=== PATIENT | male | born 1975 ===

== ENCOUNTER 2018-08-08 19:04 | Emergency (ER) | payer BC, OTHER ==
[~2018-08-08] VITALS: Ht 170.2 cm; Wt 72.1 kg
--- OUTSIDE RECORDS SUMMARY | 2018-08-08 19:08 | XMS REPORT | Continuity of Care Document ---
Author Organization Unknown Address Unknown Allergies Active Description Code Type Severity Reaction Onset Reported/Identified Relationship to Patient Clinical Status Yes No Known Drug Allergies [id number] Drug Allergy Unknown N/A 07/01/2015 Medications There is no data. Problems Date Dx Coded Attending Type Code Diagnosis Diagnosed By 07/02/2015 Ot F10.129 ALCOHOL ABUSE WITH INTOXICATION, UNSPECI 07/02/2015 Ot Y90.8 BLOOD ALCOHOL LEVEL OF 240 MG/100 ML OR Procedures There is no data. Results There is no data. Encounters ACCT No. Visit Date/Time Discharge Status Pt. Type Provider Facility Loc./Unit Complaint [id number] 08/08/2018 19:06:00 ACT Emergency GARTH LICONA MD Via [facility] ER SOB [id number] 07/01/2015 21:33:00 Document Registration [id number] 03/26/2018 17:50:00 03/26/2018 23:59:59 [facility] Outpatient [facility]
[2018-08-08] MEDS ORDERED: NS IV 1000 ML 1,000 ML IV ONE ×2 (19:20→20:40)
[2018-08-08] MEDS ORDERED: NITROGLYCERIN 0.4 MG SL TABS BTL 25'S SL ONE (19:25)
[2018-08-08 19:26] LABS: BASOPHILS % (AUTO) 1 % (0-10); EOSINOPHILS # (AUTO) 0.1 10^3/uL (0.0-0.3); EOSINOPHILS % (AUTO) 2 % (0-10); HEMATOCRIT 44 % (40-54); HEMOGLOBIN 15.4 G/DL (13.3-17.7); LYMPHOCYTES # (AUTO) 3.2 X 10^3 (1.0-4.0); LYMPHOCYTES % (AUTO) 47 % (12-44); MEAN CORPUSCULAR HEMOGLOBIN 32 PG (25-34); MEAN CORPUSCULAR HGB CONC 35 G/DL (32-36); MEAN CORPUSCULAR VOLUME 91 FL (80-99); MEAN PLATELET VOLUME 10.7 FL (7.4-10.4); MONOCYTES # (AUTO) 0.5 X 10^3 (0.0-1.0); MONOCYTES % (AUTO) 8 % (0-12); NEUTROPHILS # (AUTO) 2.9 X 10^3 (1.8-7.8); NEUTROPHILS % (AUTO) 42 % (42-75); PLATELET COUNT 233 10^3/uL (130-400); RED CELL DISTRIBUTION WIDTH 12.9 % (10.0-14.5); WHITE BLOOD COUNT 6.8 10^3/uL (4.3-11.0)
[2018-08-08] MEDS ORDERED: NITROGLYCERIN 0.4 MG SL TABS BTL 25'S SL PRN (19:30)
[2018-08-08] MEDS ORDERED: ASPIRIN 81 MG CHEW (CHILDREN'S ASA) PO ONE (19:30)
[2018-08-08 19:36] LABS: INR 0.9 (0.8-1.4); PROTHROMBIN TIME PATIENT 12.9 SEC (12.2-14.7)
--- NOTE | 2018-08-08 19:43 | ED Chest Pain ---
General Chief Complaint: Chest Pain Stated Complaint: SOB Nursing Triage Note: PT AMB TO RM 6 WITH COMPLAINT OF SOA, HEART RACING, AND CHEST PAIN. PT STATES THIS HAS BEEN ON AND OFF FOR THE LAST WEEK. STATES TODAY IT STARTED WHILE DRIVING TO [place]. Nursing Sepsis Screen: No Definite Risk Source: patient Exam Limitations: no limitations History of Present Illness Date Seen by Provider: August 08, 2018 Time Seen by Provider: 19:21 Initial Comments Here with report of intermittent chest pain over the last week. The last 4 hours he's had left-sided chest pressure that 6 out of 10 and palpitations and heart racing. Also complains of shortness of air. Onset today while driving to [place]. No report of nausea, vomiting, sweating or weakness. Timing/Duration: 4-6 hours, 1 week, changing over time, intermittent Severity/Quality: moderate, pressure Location: central Radiation: no radiation Activities at Onset: none Prior CP/Workup: no prior cardiac workup Modifying Factors: improves with rest ASA po RESEARCH TEST ENGINE EVALUATOR: No NTG SL RESEARCH TEST ENGINE EVALUATOR: No Associated Symptoms: No abdominal pain, No back pain, No diaphoresis, No fever/ chills, No nausea/vomiting; shortness of breath, weakness Allergies and Home Medications Allergies Coded Allergies: No Known Drug Allergies (Unverified , 07/01/15) Home Medications No Active Prescriptions or Reported Meds Patient Home Medication List Home Medication List Reviewed: Yes Review of Systems Review of Systems Constitutional: see HPI; No chills, No fever EENTM: No Symptoms Reported Respiratory: See HPI, Shortness of Air; Denies Wheezing Cardiovascular: Chest Pain; Denies Edema; Palpitations Gastrointestinal: No Symptoms Reported Genitourinary: No Symptoms Reported Musculoskeletal: no symptoms reported Skin: no symptoms reported Psychiatric/Neurological: No Symptoms Reported All Other Systems Reviewed Negative Unless Noted: Yes Past Puhnpjl-Thxcmt-Mebizt Hx Past Med/Social Hx: Reviewed Nursing Past Med/Soc Hx Patient Social History Alcohol Use: Denies Use Recreational Drug Use: No Smoking Status: Never a Smoker Recent Foreign Travel: No Contact w/Someone Who Travel: No Recent Infectious Disease Expo: No Recent Hopitalizations: No Immunizations Up To Date Tetanus Booster (TDap): Unknown Seasonal Allergies Seasonal Allergies: No Past Medical History Surgeries: No Respiratory: No Cardiac: Yes High Cholesterol Neurological: No Reproductive Disorders: No Genitourinary: No Gastrointestinal: No Musculoskeletal: No Endocrine: No HEENT: No Cancer: No Integumentary: No Family Medical History Reviewed Nursing Family Hx Physical Exam Vital Signs Vital Signs - First Documented 08/08/18 19:09 Pulse 92 Resp 20 B/P (MAP) 133/87 (102) Pulse Ox 100 O2 Delivery Room Air Capillary Refill : Less Than 3 Seconds Height, Weight, BMI Height: 5'7.00" Weight: 159lbs. oz. 72.171258dk; BMI Method:Stated General Appearance: No Apparent Distress, WD/WN HEENT: PERRL/EOMI, Pharynx Normal Neck: Non Tender, Supple Respiratory: Lungs Clear, Normal Breath Sounds Cardiovascular: Regular Rate, Rhythm, No Murmur Gastrointestinal: Non Tender, Soft Extremity: Normal Range of Motion, Non Tender Neurologic/Psychiatric: Alert, Oriented x3 Skin: Normal Color, Warm/Dry Progress/Results/Core Measures Results/Orders Lab Results Laboratory Tests Test 08/08/18 19:17 08/08/18 19:29 Range/Units White Blood Count 6.8 4.3-11.0 10^3/uL Red Blood Count 4.82 4.35-5.85 10^6/uL Hemoglobin 15.4 13.3-17.7 G/DL Hematocrit 44 40-54 % Mean Corpuscular Volume 91 80-99 FL Mean Corpuscular Hemoglobin 32 25-34 PG Mean Corpuscular Hemoglobin Concent 35 32-36 G/DL Red Cell Distribution Width 12.9 10.0-14.5 % Platelet Count 233 130-400 10^3/uL Mean Platelet Volume 10.7 H 7.4-10.4 FL Neutrophils (%) (Auto) 42 42-75 % Lymphocytes (%) (Auto) 47 H 12-44 % Monocytes (%) (Auto) 8 0-12 % Eosinophils (%) (Auto) 2 0-10 % Basophils (%) (Auto) 1 0-10 % Neutrophils # (Auto) 2.9 1.8-7.8 X 10^3 Lymphocytes # (Auto) 3.2 1.0-4.0 X 10^3 Monocytes # (Auto) 0.5 0.0-1.0 X 10^3 Eosinophils # (Auto) 0.1 0.0-0.3 10^3/uL Basophils # (Auto) 0.0 0.0-0.1 10^3/uL Prothrombin Time 12.9 12.2-14.7 SEC INR Comment 0.9 0.8-1.4 Activated Partial Thromboplast Time 28 24-35 SEC D-Dimer < 0.27 0.00-0.49 UG/ML Sodium Level 137 135-145 MMOL/L Potassium Level 3.2 L 3.6-5.0 MMOL/L Chloride Level 102 98-107 MMOL/L Carbon Dioxide Level 20 L 21-32 MMOL/L Anion Gap 15 H 5-14 MMOL/L Blood Urea Nitrogen 10 7-18 MG/DL Creatinine 0.85 0.60-1.30 MG/DL Estimat Glomerular Filtration Rate > 60 BUN/Creatinine Ratio 12 Glucose Level 197 H 70-105 MG/DL Calcium Level 9.1 8.5-10.1 MG/DL Corrected Calcium 8.7 8.5-10.1 MG/DL Magnesium Level 2.2 1.8-2.4 MG/DL Total Bilirubin 0.8 0.1-1.0 MG/DL Aspartate Amino Transf (AST/SGOT) 23 5-34 U/L Alanine Aminotransferase (ALT/SGPT) 20 0-55 U/L Alkaline Phosphatase 107 40-136 U/L Myoglobin 30.5 10.0-92.0 NG/ML Troponin I < 0.028 <0.028 NG/ML Total Protein 7.8 6.4-8.2 GM/DL Albumin 4.5 3.2-4.5 GM/DL Lipase 51 8-78 U/L Urine Color YELLOW Urine Clarity CLEAR Urine pH 6 5-9 Urine Specific [place] 1.020 1.016-1.022 Urine Protein NEGATIVE NEGATIVE Urine Glucose (UA) 3+ H NEGATIVE Urine Ketones NEGATIVE NEGATIVE Urine Nitrite NEGATIVE NEGATIVE Urine Bilirubin NEGATIVE NEGATIVE Urine Urobilinogen NORMAL NORMAL MG/DL Urine Leukocyte Esterase NEGATIVE NEGATIVE Urine RBC (Auto) NEGATIVE NEGATIVE Urine RBC NONE /HPF Urine WBC NONE /HPF Urine Squamous Epithelial Cells RARE /HPF Urine Crystals NONE /LPF Urine Bacteria NEGATIVE /HPF Urine Casts NONE /LPF Urine Mucus SMALL H /LPF Urine Culture Indicated NO My Orders Orders - GARTH LICONA MD Cbc With Automated Diff (08/08/18 19:20) Magnesium (08/08/18 19:20) Chest 1 View, Ap/Pa Only (08/08/18 19:20) Ekg Tracing (08/08/18 19:20) Cardiac Profile 1 (08/08/18:20) Comprehensive Metabolic Panel (08/08/18:) Myoglobin Serum (08/08/18:20) Protime With Inr (08/08/18:20) Partial Thromboplastin Time (08/08/18:20) O2 (08/08/18:20) Monitor-Rhythm Ecg Trace Only (08/08/18:) Lipid Panel (08/09/18 06:00) Ed Iv/Invasive Line Start (08/08/18:20) Lipase (08/08/18:) Fibrin Degradation Products (08/08/18:) Aspirin Chewable Tablet (Baby Aspirin Ch (08/08/18 19:30) Ed Iv/Invasive Line Start (08/08/18 19:20) Ns Iv 1000 Ml (Sodium Chloride 0.9%) (08/08/18 19:20) Nitroglycerin 0.4 Mg Btl 25's (Nitrostat (08/08/18 19:30) Nitroglycerin 0.4 Mg Btl 25's (Nitrostat (08/08/18 19:25) Ua Culture If Indicated (08/08/18 20:18) Ns Iv 1000 Ml (Sodium Chloride 0.9%) (08/08/18 20:40) Hemoglobin A1c (08/08/18 20:40) Medications Given in ED Current Medications Medications Dose Ordered Sig/Xiomy Route Start Time Stop Time Status Last Admin Dose Admin Aspirin 324 mg ONCE ONCE PO 08/08/18 19:30 08/08/18 19:31 DC 08/08/18 19:30 324 MG Nitroglycerin 0.4 mg UD PRN SL 08/08/18 19:30 08/08/18 19:30 0.4 MG Sodium Chloride 1,000 ml @ 0 mls/hr Q0M ONCE IV 08/08/18 19:20 08/08/18 19:22 DC 08/08/18 19:30 1,000 MLS/HR Sodium Chloride 1,000 ml @ 0 mls/hr Q0M ONCE IV 08/08/18 20:40 08/08/18 20:41 DC 5/11/19 20:52 1,000 MLS/HR Vital Signs/I&O 08/08/18 19:09 Pulse 92 Resp 20 B/P (MAP) 133/87 (102) Pulse Ox 100 O2 Delivery Room Air Blood Pressure Mean: 102 Progress Progress Note : Progress Note Seen and evaluated. IV, labs, EKG and chest x-ray ordered. ASA 324 mg by mouth ordered. Normal saline 1 L bolus. Patient has persistent chest pain so we will give nitroglycerin sublingual as well. Monitor patient. Repeat normal saline 1 L bolus. Blood sugar noted to be elevated and he did have 3+ glucose in his urine. I do believe the patient is diabetic. He discussed the case with Dr. booth son as the on-call for [facility]. We will initiate metformin ER daily in patient is to follow-up with his provider. I did discuss with the patient and family. They have other family members at the [facility] and he is stating that he will follow up with the [facility]. I'll give him a 30 day prescription to give him time to get appointment. We will initiate metformin tonight. Patient is pain-free and overall feeling better now. Troponin negative after 4 hours of chest discomforts believe that that is related to palpitations and not active heart event. He will need follow-up with cardiology as well. I' ll give him information on cardiology follow-up. Discharged home with return Precautions. Patient and family verbalize understanding instructions and agreement with plan. Initial ECG Impression Date: August 08, 2018 Initial ECG Impression Time: 19:19 Initial ECG Rate: 100 Initial ECG Rhythm: S.Tach Comment Sinus tachycardia with a complete right bundle-branch block. No ST elevation ID. Normal axis. No previous available for comparison. Interpreted by me. Diagnostic Imaging Diagonstic Imaging: Xray Plain Films/CT/US/NM/MRI: chest Comments NAME: JOSE ALFREDO REECE [facility] REC#: [id number] PT STATUS: REG ER : 1975 PHYSICIAN: GARTH LICONA MD ADMIT DATE: 08/08/18/ER Draft Date of Exam:08/08/18 CHEST 1 VIEW, AP/PA ONLY INDICATION: Chest pain. EXAMINATION: Frontal chest was obtained at 7:38 p.m. COMPARISON: 07/01/2015. FINDINGS: Heart and mediastinal silhouette are normal in appearance. The lungs are clear. There is no pneumothorax or pleural fluid. IMPRESSION: No acute process in the chest. Dictated on workstation # [id number] Dict: 08/08/181957 Trans: 08/08/182000 PJE [id number] Interpreted by: NELLIE MAHAN MD Electronically signed by: Departure Impression Primary Impression: Chest pain Qualified Codes: R07.9 - Chest pain, unspecified Additional Impression: Hyperglycemia Disposition: HOME, SELF-CARE Condition: Improved Departure-Patient Inst. Decision time for Depature: 21:41 [facility]Kat THOMPSON MD NO,LOCAL PHYSICIAN (PCP) Primary Care Physician Patient Instructions: Chest Pain (DC), Diabetes Type 2 (DC), Diabetes and Diet Add. Discharge Instructions: All discharge instructions reviewed with patient and/or family. Voiced understanding. It is very important that you follow-up with primary care physician. You should call the [facility] and get appointment within the next one to 2 weeks regarding the diabetes. You should also follow up with cardiology. Call for appointment within the next one week. That catheter return for worse pain, fever , vomiting, weakness, breathing problems or other concerns as needed. Avoid sugary foods and drinks. Take medications as directed. Scripts Metformin HCl (Metformin HCl ER) 500 Mg Tab.er.24 500 MG PO DAILY, #30 TAB 0 Refills Prov: GARTH LICONA MD 08/08/18 Copy Copies To 1: KULWINDER BRYANT TIMOTHY D MD August 08, 2018 19:43
[2018-08-08 19:46] LABS: ALANINE AMINOTRANSFERASE 20 U/L (0-55); ALBUMIN 4.5 GM/DL (3.2-4.5); ALKALINE PHOSPHATASE 107 U/L (40-136); BILIRUBIN,TOTAL 0.8 MG/DL (0.1-1.0); BUN/CREATININE RATIO 12; CALCIUM 9.1 MG/DL (8.5-10.1); CARBON DIOXIDE 20 MMOL/L (21-32); CREATININE SERUM 0.85 MG/DL (0.60-1.30); GFR ESTIMATED > 60; GLUCOSE 197 MG/DL (70-105); LIPASE 51 U/L (8-78); TOTAL PROTEIN 7.8 GM/DL (6.4-8.2)
--- NOTE | 2018-08-08 20:01 | Diagnostic Imaging Report ---
INDICATION: Chest pain. EXAMINATION: Frontal chest was obtained at 7:38 p.m. COMPARISON: 07/01/2015. FINDINGS: Heart and mediastinal silhouette are normal in appearance. The lungs are clear. There is no pneumothorax or pleural fluid. IMPRESSION: No acute process in the chest. Dictated by: Dictated on workstation # [id number]
[2018-08-08 20:03] LABS: CHLORIDE 102 MMOL/L (98-107); POTASSIUM 3.2 MMOL/L (3.6-5.0); SODIUM 137 MMOL/L (135-145)
[2018-08-08 20:10] LABS: MAGNESIUM 2.2 MG/DL (1.8-2.4)
[2018-08-08 20:28] LABS: BILIRUBIN,URINE NEGATIVE (NEGATIVE); COLOR,URINE YELLOW; GLUCOSE, URINE (UA) 3+ (NEGATIVE); KETONES,URINE NEGATIVE (NEGATIVE); LEUKOCYTE ESTERASE ,URINE NEGATIVE (NEGATIVE); NITRITE,URINE NEGATIVE (NEGATIVE); PH,URINE 6 (5-9); PROTEIN,URINE NEGATIVE (NEGATIVE); UROBILINOGEN,URINE NORMAL (NORMAL)
[2018-08-08 20:34] LABS: BACTERIA,URINE NEGATIVE /HPF; CLARITY,URINE CLEAR; SQUAMOUS EPITHELIAL CELL,UR RARE /HPF
[2018-08-08] MEDS ORDERED: metFORMIN 500 MG (GLUCOPHAGE) TAB PO SCH (21:45)
[2018-08-08] MEDS ORDERED: METF-478 PO (21:46)
[2018-08-08 22:30] VITALS: BP 120/84
== END 2018-08-08 22:30 | disposition home or self-care (01) ==
LOC: EDUNIT# 19:04 → ER 19:06
DX: R07.89 Other chest pain (principal); R73.9 Hyperglycemia, unspecified; E78.00 Pure hypercholesterolemia, unspecified
CPT/HCPCS: 36415; 71045; 80053; 81000; 83036; 83690; 83735; 83874; 84484; 85025; 85379; 85610; 85730; 93005; 93041; 96360; 96361

== ENCOUNTER 2018-08-13 13:43 | Emergency (ER) | payer BC ==
[~2018-08-13] VITALS: Ht 170.2 cm; Wt 72.1 kg
[~2018-08-13 13:43] MED LIST: METF-478 PO
--- OUTSIDE RECORDS SUMMARY | 2018-08-13 14:13 | XMS REPORT | Continuity of Care Document ---
Author Organization Unknown Address Unknown Allergies Active Description Code Type Severity Reaction Onset Reported/Identified Relationship to Patient Clinical Status Yes No Known Drug Allergies [id number] Drug Allergy Unknown N/A 07/01/2015 Medications There is no data. Problems Date Dx Coded Attending Type Code Diagnosis Diagnosed By 07/02/2015 Ot F10.129 ALCOHOL ABUSE WITH INTOXICATION, UNSPECI 07/02/2015 Ot Y90.8 BLOOD ALCOHOL LEVEL OF 240 MG/100 ML OR 08/08/2018 GARTH LICONA MD Ot E78.00 PURE HYPERCHOLESTEROLEMIA, UNSPECIFIED 08/08/2018 GARTH LICONA MD Ot R07.89 OTHER CHEST PAIN 08/08/2018 GARTH LICONA MD Ot R73.9 HYPERGLYCEMIA, UNSPECIFIED 08/11/2018 GARTH LICONA MD Ot E78.00 PURE HYPERCHOLESTEROLEMIA, UNSPECIFIED 08/11/2018 GARTH LICONA MD Ot R07.89 OTHER CHEST PAIN 08/11/2018 GARTH LICONA MD, Ot R73.9 HYPERGLYCEMIA, UNSPECIFIED Procedures There is no data. Results Test Result Range Complete blood count (CBC) with automated white blood cell (WBC) differential - 08/08/18 19:17 Blood leukocytes automated count (number/volume) 6.8 10*3/uL 4.3-11.0 Blood erythrocytes automated count (number/volume) 4.82 10*6/uL 4.35-5.85 Venous blood hemoglobin measurement (mass/volume) 15.4 g/dL 13.3-17.7 Blood hematocrit (volume fraction) 44 % 40-54 Automated erythrocyte mean corpuscular volume 91 [foz_us] 80-99 Automated erythrocyte mean corpuscular hemoglobin (mass per erythrocyte) 32 pg 25-34 Automated erythrocyte mean corpuscular hemoglobin concentration measurement ( mass/volume) 35 g/dL 32-36 Automated erythrocyte distribution width ratio 12.9 % 10.0-14.5 Automated blood platelet count (count/volume) 233 10*3/uL 130-400 Automated blood platelet mean volume measurement 10.7 [foz_us] 7.4-10.4 Automated blood neutrophils/100 leukocytes 42 % 42-75 Automated blood lymphocytes/100 leukocytes 47 % 12-44 Blood monocytes/100 leukocytes 8 % 0-12 Automated blood eosinophils/100 leukocytes 2 % 0-10 Automated blood basophils/100 leukocytes 1 % 0-10 Blood neutrophils automated count (number/volume) 2.9 10*3 1.8-7.8 Blood lymphocytes automated count (number/volume) 3.2 10*3 1.0-4.0 Blood monocytes automated count (number/volume) 0.5 10*3 0.0-1.0 Automated eosinophil count 0.1 10*3/uL 0.0-0.3 Automated blood basophil count (count/volume) 0.0 10*3/uL 0.0-0.1 PT panel in platelet poor plasma by coagulation assay - 08/08/18 19:17 Prothrombin time (PT) in platelet poor plasma by coagulation assay 12.9 s 12.2-14.7 INR in platelet poor plasma or blood by coagulation assay 0.9 0.8-1.4 Activated partial thromboplastin time (aPTT) in platelet poor plasma bycoagulation assay - 08/08/18 19:17 Activated partial thromboplastin time (aPTT) in platelet poor plasma bycoagulation assay 28 s 24-35 Comprehensive metabolic panel - 08/08/18 19:17 Serum or plasma sodium measurement (moles/volume) 137 mmol/L 135-145 Serum or plasma potassium measurement (moles/volume) 3.2 mmol/L 3.6-5.0 Serum or plasma chloride measurement (moles/volume) 102 mmol/L 98-107 Carbon dioxide 20 mmol/L 21-32 Serum or plasma anion gap determination (moles/volume) 15 mmol/L 5-14 Serum or plasma urea nitrogen measurement (mass/volume) 10 mg/dL 7-18 Serum or plasma creatinine measurement (mass/volume) 0.85 mg/dL 0.60-1.30 Serum or plasma urea nitrogen/creatinine mass ratio 12 NRG Serum or plasma creatinine measurement with calculation of estimated glomerular filtration rate > NRG Serum or plasma glucose measurement (mass/volume) 197 mg/dL 70-105 Serum or plasma calcium measurement (mass/volume) 9.1 mg/dL 8.5-10.1 Serum or plasma total bilirubin measurement (mass/volume) 0.8 mg/dL 0.1-1.0 Serum or plasma alkaline phosphatase measurement (enzymatic activity/volume) 107 U/L 40-136 Serum or plasma aspartate aminotransferase measurement (enzymatic activity/ volume) 23 U/L 5-34 Serum or plasma alanine aminotransferase measurement (enzymatic activity/volume ) 20 U/L 0-55 Serum or plasma protein measurement (mass/volume) 7.8 g/dL 6.4-8.2 Serum or plasma albumin measurement (mass/volume) 4.5 g/dL 3.2-4.5 CALCIUM CORRECTED 8.7 mg/dL 8.5-10.1 Magnesium - 08/08/18 19:17 Magnesium 2.2 mg/dL 1.8-2.4 Fibrin D-dimer FEU measurement in platelet poor plasma (mass/volume) - 19:17 Fibrin D-dimer FEU measurement in platelet poor plasma (mass/volume) < ug/mL 0.00-0.49 Serum or plasma troponin i.cardiac measurement (mass/volume) - 08/08/18 19:17 Serum or plasma troponin i.cardiac measurement (mass/volume) < ng/ mL <0.028 Myoglobin, serum - 08/08/18 19:17 Myoglobin, serum 30.5 ng/mL 10.0-92.0 Lipase - 08/08/18 19:17 Lipase 51 U/L 8-78 Hemoglobin A1c - 08/08/18 19:17 Blood hemoglobin A1C measurement (mass/volume) 5.6 % 4.0- 5.6 MEAN BLOOD GLUCOSE 114 % <=126 Complete urinalysis with reflex to culture - 08/08/18 19:29 Urine color determination YELLOW NRG Urine clarity determination CLEAR NRG Urine pH measurement by test strip 6 5-9 Specific gravity of urine by test strip 1.020 1.016- 1.022 Urine protein assay by test strip, semi-quantitative NEGATIVE NEGATIVE Urine glucose detection by automated test strip 3+ NEGATIVE Erythrocytes detection in urine sediment by light microscopy NEGATIVE NEGATIVE Urine ketones detection by automated test strip NEGATIVE NEGATIVE Urine nitrite detection by test strip NEGATIVE NEGATIVE Urine total bilirubin detection by test strip NEGATIVE NEGATIVE Urine urobilinogen measurement by automated test strip (mass/volume) NORMAL NORMAL Urine leukocyte esterase detection by dipstick NEGATIVE NEGATIVE Automated urine sediment erythrocyte count by microscopy (number/high power field) NONE NRG Automated urine sediment leukocyte count by microscopy (number/high power field ) NONE NRG Bacteria detection in urine sediment by light microscopy NEGATIVE NRG Squamous epithelial cells detection in urine sediment by light microscopy RARE NRG Crystals detection in urine sediment by light microscopy NONE NRG Casts detection in urine sediment by light microscopy NONE NRG Mucus detection in urine sediment by light microscopy SMALL NRG Complete urinalysis with reflex to culture NO NRG Encounters ACCT No. Visit Date/Time Discharge Status Pt. Type Provider Facility Loc./Unit Complaint [id number] 08/08/2018 19:06:00 08/08/2018 22:30:00 DIS Emergency LIVAN MONTILLA, GARTH Silva [id number] 07/01/2015 21:33:00 Document Registration
--- NOTE | 2018-08-13 14:14 | ED Cardiac General ---
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 Reports similar episode last Friday. Was seen and evaluated in the ED in [place]. Denies any associated chest pain to these events but has had several intermittent episodes fo sharp chest pain this last week. Denies any associated dyspnea, N/V, or diaphoresis. 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: No Associated Systoms: Denies Symptoms (x/ as noted.), Chest Pain (see above); No Diaphoresis, No Nausea/Vomiting, No Shortness of Air; Syncope (near) Allergies and Home Medications Allergies Coded Allergies: No Known Drug Allergies (Unverified , 07/01/15) Home Medications Metformin HCl 500 Mg Tab.er.24, 500 MG PO DAILY Prescribed by: GARTH LICONA on 08/08/182145 Patient Home Medication List Home Medication List Reviewed: Yes Review of Systems Review of Systems Constitutional: see HPI Cardiovascular: See HPI, Palpitations, Syncope (near) Psychiatric/Neurological: See HPI, Other (insomnia) All Other Systems Reviewed Negative Unless Noted: Yes (Negative excepted noted.) Past Jkofxpw-Tggxgh-Ftblzh Hx Patient Social History Recent Hopitalizations: No Immunizations Up To Date Tetanus Booster (TDap): Unknown Seasonal Allergies Seasonal Allergies: No Past Medical History Surgeries: No Respiratory: No Cardiac: Yes High Cholesterol Neurological: No Reproductive Disorders: No Genitourinary: No Gastrointestinal: No Musculoskeletal: No Endocrine: No HEENT: No Cancer: No Integumentary: No Physical Exam Vital Signs Vital Signs - First Documented 08/13/18 14:13 Temp 99.1 Pulse 88 Resp 12 B/P (MAP) 130/81 (97) Pulse Ox 99 Capillary Refill : Height, Weight, BMI Height: 5'7.00" Weight: 159lbs. oz. 72.048597nf; BMI Method:Stated General Appearance: No Apparent Distress, WD/WN HEENT: Normal ENT Inspection Neck: Normal Inspection Respiratory: Lungs Clear, No Respiratory Distress Cardiovascular: Regular Rate, Rhythm Rectal: Deferred Neurologic/Psychiatric: Alert, Oriented x3, No Motor/Sensory Deficits, Normal Mood/Affect Skin: Warm/Dry Progress/Results/Core Measures Results/Orders Lab Results Laboratory Tests Test 08/13/18 14:07 08/13/18 14:33 Range/Units White Blood Count 6.2 4.3-11.0 10^3/uL Red Blood Count 4.74 4.35-5.85 10^6/uL Hemoglobin 15.1 13.3-17.7 G/DL Hematocrit 43 40-54 % Mean Corpuscular Volume 91 80-99 FL Mean Corpuscular Hemoglobin 32 25-34 PG Mean Corpuscular Hemoglobin Concent 35 32-36 G/DL Red Cell Distribution Width 12.3 10.0-14.5 % Platelet Count 237 130-400 10^3/uL Mean Platelet Volume 10.4 7.4-10.4 FL Neutrophils (%) (Auto) 53 42-75 % Lymphocytes (%) (Auto) 37 12-44 % Monocytes (%) (Auto) 9 0-12 % Eosinophils (%) (Auto) 1 0-10 % Basophils (%) (Auto) 1 0-10 % Neutrophils # (Auto) 3.3 1.8-7.8 X 10^3 Lymphocytes # (Auto) 2.3 1.0-4.0 X 10^3 Monocytes # (Auto) 0.5 0.0-1.0 X 10^3 Eosinophils # (Auto) 0.1 0.0-0.3 10^3/uL Basophils # (Auto) 0.0 0.0-0.1 10^3/uL D-Dimer 0.33 0.00-0.49 UG/ML Sodium Level 130 L 135-145 MMOL/L Potassium Level 3.5 L 3.6-5.0 MMOL/L Chloride Level 90 L 98-107 MMOL/L Carbon Dioxide Level 27 21-32 MMOL/L Anion Gap 13 5-14 MMOL/L Blood Urea Nitrogen 11 7-18 MG/DL Creatinine 0.79 0.60-1.30 MG/DL Estimat Glomerular Filtration Rate > 60 BUN/Creatinine Ratio 14 Glucose Level 113 H 70-105 MG/DL Calcium Level 9.0 8.5-10.1 MG/DL Corrected Calcium 8.5-10.1 MG/DL Magnesium Level 1.9 1.8-2.4 MG/DL Total Bilirubin 1.1 H 0.1-1.0 MG/DL Aspartate Amino Transf (AST/SGOT) 28 5-34 U/L Alanine Aminotransferase (ALT/SGPT) 18 0-55 U/L Alkaline Phosphatase 73 40-136 U/L Troponin T < 6 <=15 NG/L Pro-B-Type Natriuretic Peptide 8.5 <75.0 PG/ML Total Protein 8.3 H 6.4-8.2 GM/DL Albumin 4.8 H 3.2-4.5 GM/DL Lipase 31 8-78 U/L Thyroid Stimulating Hormone (TSH) 1.78 0.35-4.94 UIU/ML Urine Opiates Screen NEGATIVE NEGATIVE Urine Oxycodone Screen NEGATIVE NEGATIVE Urine Methadone Screen NEGATIVE NEGATIVE Urine Propoxyphene Screen NEGATIVE NEGATIVE Urine Barbiturates Screen NEGATIVE NEGATIVE Ur Tricyclic Antidepressants Screen NEGATIVE NEGATIVE Urine Phencyclidine Screen NEGATIVE NEGATIVE Urine Amphetamines Screen NEGATIVE NEGATIVE Urine Methamphetamines Screen NEGATIVE NEGATIVE Urine Benzodiazepines Screen NEGATIVE NEGATIVE Urine Cocaine Screen NEGATIVE NEGATIVE Urine Cannabinoids Screen NEGATIVE NEGATIVE My Orders Orders - SUNDAY CONWAY DO Cbc With Automated Diff (08/13/18 14:19) Magnesium (08/13/18 14:19) Chest 1 View Ap/Pa Only (08/13/18 14:19) Ekg Tracing (08/13/18 14:19) Comprehensive Metabolic Panel (08/13/18 14:19) Monitor-Rhythm Ecg Trace Only (08/13/18 14:19) Aspirin Chewable Tablet (Baby Aspirin Ch (08/13/18 14:30) Ed Iv/Invasive Line Start (08/13/18 14:19) Lipase (08/13/18 14:19) Troponin T (08/13/18 14:19) Probnp Fs (08/13/18 14:19) Thyroid Stimulating Hormone (08/13/18 14:19) Drug Screen Stat (Urine) (08/13/18 14:19) Orthostatic Vital Signs (Adult (08/13/18 14:21) Fibrin Degradation Products (08/13/18 14:40) Ns Iv 1000 Ml (Sodium Chloride 0.9%) (08/13/18 15:15) Medications Given in ED Vital Signs/I&O 08/13/18 08/13/18 08/13/18 14:13 14:44 16:21 Temp 99.1 Pulse 88 91 75 96 97 Resp 12 16 B/P (MAP) 130/81 (97) 120/76 (91) 126/81 (96) 126/93 (104) 113/83 (93) Pulse Ox 99 98 Progress Progress Note : Progress Note Feels better p/ IVF's Initial ECG Rhythm: Normal Sinus Initial ECG Impression: Nonspecific Changes (Probable LAE; Anteroseptal infarct, ? age.) Initial ECG Comparisson: No Previous ECG Available Diagnostic Imaging Diagonstic Imaging: Xray Plain Films/CT/US/NM/MRI: chest (nothing acute) Departure Impression Primary Impression: Palpitations Additional Impressions: Dehydration Hyponatremia Insomnia Disposition: 01 HOME, SELF-CARE Condition: Stable Departure-Patient Inst. Decision time for Depature: 16:07 Referrals: [facility] [place] (PCP/Family) Primary Care Physician Patient Instructions: Dehydration, Adult (DC), Hyponatremia, Insomnia (DC), P alpitations (DC) Add. Discharge Instructions: All discharge instructions reviewed with patient and/or family. Voiced understanding. KEEP YOUR UP COMING APPOINTMENT FOR NEXT WEEK WITH A PCP. THEY MIGHT WANT TO GET YOUR SET UP FOR AN EVENT/HOLTER MONITOR. STAY WELL HYDRATED. RECOMMEND SOMETHING LIKE PROPEL. FOR SLEEP, I RECOMMEND TAKING 2 BENADRYL 30-60 MINUTES BEFORE BEDTIME. SUNDAY CONWAY DO August 13, 2018 14:14
[2018-08-13] MEDS ORDERED: ASPIRIN 81 MG CHEW (CHILDREN'S ASA) PO ONE (14:30)
[2018-08-13 14:36] LABS: HEMATOCRIT 43 % (40-54); HEMOGLOBIN 15.1 G/DL (13.3-17.7); MEAN CORPUSCULAR HEMOGLOBIN 32 PG (25-34); MEAN CORPUSCULAR HGB CONC 35 G/DL (32-36); MEAN CORPUSCULAR VOLUME 91 FL (80-99); WHITE BLOOD COUNT 6.2 10^3/uL (4.3-11.0)
[2018-08-13 14:37] LABS: BASOPHILS % (AUTO) 1 % (0-10); EOSINOPHILS % (AUTO) 1 % (0-10); LYMPHOCYTES # (AUTO) 2.3 X 10^3 (1.0-4.0); LYMPHOCYTES % (AUTO) 37 % (12-44); MEAN PLATELET VOLUME 10.4 FL (7.4-10.4); MONOCYTES # (AUTO) 0.5 X 10^3 (0.0-1.0); MONOCYTES % (AUTO) 9 % (0-12); NEUTROPHILS # (AUTO) 3.3 X 10^3 (1.8-7.8); NEUTROPHILS % (AUTO) 53 % (42-75); PLATELET COUNT 237 10^3/uL (130-400); RED CELL DISTRIBUTION WIDTH 12.3 % (10.0-14.5)
[2018-08-13 14:38] LABS: EOSINOPHILS # (AUTO) 0.1 10^3/uL (0.0-0.3)
[2018-08-13 14:44] VITALS: BP_SYST 113; BP_SYST 120; BP_SYST 126; BP_DIAS 76; BP_DIAS 83; BP_DIAS 93
--- NOTE | 2018-08-13 14:51 | Diagnostic Imaging Report ---
Indication: Tachycardia near syncope. Time of exam 2:16 PM Correlation is made with prior study from 08/08/2018. The heart size is normal. The pulmonary vascularity is unremarkable. The lungs are clear. No infiltrate, effusion or pneumothorax is detected. Impression: No acute cardiopulmonary process is detected. Dictated by: Dictated on workstation # [id number]
[2018-08-13 14:55] LABS: AMPHETAMINE SCREEN, URINE NEGATIVE (NEGATIVE); BARBITURATE SCREEN URINE NEGATIVE (NEGATIVE); BENZODIAZEPINES SCREEN URINE NEGATIVE (NEGATIVE); CANNABINOID SCREEN, URINE NEGATIVE (NEGATIVE); COCAINE SCREEN URINE NEGATIVE (NEGATIVE); METHADONE STAT NEGATIVE (NEGATIVE); METHAMPHETAMINE SCREEN URINE S NEGATIVE (NEGATIVE); OPIATE SCREEN URINE NEGATIVE (NEGATIVE); OXYCODONE STAT NEGATIVE (NEGATIVE); PROPOXYPHENE STAT NEGATIVE (NEGATIVE); TRICYCLIC ANTIDEPRESSANTS SCRE NEGATIVE (NEGATIVE)
[2018-08-13 14:57] LABS: BUN/CREATININE RATIO 14; CARBON DIOXIDE 27 MMOL/L (21-32); CHLORIDE 90 MMOL/L (98-107); CREATININE SERUM 0.79 MG/DL (0.60-1.30); GFR ESTIMATED > 60; GLUCOSE 113 MG/DL (70-105); MAGNESIUM 1.9 MG/DL (1.8-2.4); POTASSIUM 3.5 MMOL/L (3.6-5.0); SODIUM 130 MMOL/L (135-145)
[2018-08-13 14:58] LABS: ALANINE AMINOTRANSFERASE 18 U/L (0-55); ALBUMIN 4.8 GM/DL (3.2-4.5); ALKALINE PHOSPHATASE 73 U/L (40-136); BILIRUBIN,TOTAL 1.1 MG/DL (0.1-1.0); LIPASE 31 U/L (8-78); TOTAL PROTEIN 8.3 GM/DL (6.4-8.2)
[2018-08-13] MEDS ORDERED: NS 1000 ML IV BAG IV ONE (15:15)
[2018-08-13 16:21] VITALS: BP 126/81
== END 2018-08-13 16:15 | disposition home or self-care (01) ==
LOC: EDUNIT# 13:43 → ER FS 13:45
DX: R00.2 Palpitations (principal); E86.0 Dehydration; E87.1 Hypo-osmolality and hyponatremia; G47.00 Insomnia, unspecified; E78.00 Pure hypercholesterolemia, unspecified; Z79.84 Long term (current) use of oral hypoglycemic drugs
CPT/HCPCS: 36415; 71045; 80053; 80306; 83690; 83735; 83880; 84443; 84484; 85025; 85379; 93005; 93041

== ENCOUNTER 2018-08-17 21:11 | Emergency (ER) | payer BC ==
[~2018-08-17] VITALS: Ht 170.2 cm; Wt 72.1 kg
--- OUTSIDE RECORDS SUMMARY | 2018-08-17 21:16 | XMS REPORT | Continuity of Care Document ---
Author Organization Unknown Address Unknown Allergies Active Description Code Type Severity Reaction Onset Reported/Identified Relationship to Patient Clinical Status Yes No Known Drug Allergies [id number] Drug Allergy Unknown N/A 07/01/2015 Medications There is no data. Problems Date Dx Coded Attending Type Code Diagnosis Diagnosed By 07/02/2015 Ot F10.129 ALCOHOL ABUSE WITH INTOXICATION, UNSPECI 07/02/2015 Ot Y90.8 BLOOD ALCOHOL LEVEL OF 240 MG/100 ML OR 08/08/2018 GARTH LICONA MD, Ot E78.00 PURE HYPERCHOLESTEROLEMIA, UNSPECIFIED 08/08/2018 GARTH LICONA MD Ot R07.89 OTHER CHEST PAIN 08/08/2018 GARTH LICONA MD Ot R73.9 HYPERGLYCEMIA, UNSPECIFIED 08/11/2018 GARTH LICONA MD, Ot E78.00 PURE HYPERCHOLESTEROLEMIA, UNSPECIFIED 08/11/2018 GARTH LICONA MD Ot R07.89 OTHER CHEST PAIN 08/11/2018 GARTH LICONA MD, Ot R73.9 HYPERGLYCEMIA, UNSPECIFIED 08/17/2018 CONWAY DO Ot E78.00 PURE HYPERCHOLESTEROLEMIA, UNSPECIFIED 08/17/2018 CONWAY DO Ot E86.0 DEHYDRATION 08/17/2018 CONWAY DO Ot E87.1 HYPO-OSMOLALITY AND HYPONATREMIA 08/17/2018 CONWAY DO Ot G47.00 INSOMNIA, UNSPECIFIED 08/17/2018 CONWAY DO Ot R00.0 TACHYCARDIA, UNSPECIFIED 08/17/2018 CONWAY DO Ot R00.2 PALPITATIONS 08/17/2018 CONWAY DO Ot 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 Results Test [...] Automated erythrocyte mean corpuscular hemoglobin concentration measurement (mass/volume) 35 g/dL 32-36 Automated erythrocyte distribution width ratio 12.9 % 10.0- 14.5 Automated blood platelet count (count/volume) 233 10*3/uL [...] Blood monocytes automated count (number/volume) 0.5 10*3 0.0- 1.0 Automated eosinophil count 0.1 10*3/uL 0.0-0.3 Automated [...] Serum or plasma aspartate aminotransferase measurement (enzymatic activity/volume) 23 U/L 5-34 Serum or plasma alanine aminotransferase measurement (enzymatic activity/volume) 20 U/L 0-55 Serum or plasma protein measurement (mass/volume) 7.8 g/dL 6.4-8.2 Serum or plasma albumin measurement (mass/volume) 4.5 g/dL 3.2-4.5 CALCIUM CORRECTED 8.7 mg/dL 8.5-10.1 Magnesium - 08/08/18 19:17 Magnesium 2.2 mg/dL 1.8-2.4 Fibrin D-dimer FEU measurement in platelet poor plasma (mass/volume) - 08/08/18 19:17 Fibrin D-dimer FEU measurement in platelet poor plasma (mass/volume) < ug/mL 0.00-0.49 Serum or plasma troponin i.cardiac measurement (mass/volume) - 08/08/18 19:17 Serum or plasma troponin i.cardiac measurement (mass/volume) < ng/mL <0.028 Myoglobin, serum - 08/08/18 19:17 Myoglobin, serum 30.5 ng/mL 10.0-92.0 Lipase - 08/08/18 19:17 Lipase 51 U/L 8-78 Hemoglobin A1c - 08/08/18 19:17 Blood hemoglobin A1C measurement (mass/volume) 5.6 % 4.0-5.6 MEAN BLOOD GLUCOSE 114 % <=126 Complete urinalysis with reflex to culture - 08/08/18 19:29 Urine color determination YELLOW NRG Urine clarity determination CLEAR NRG Urine pH measurement by test strip 6 5-9 Specific gravity of urine by test strip 1.020 1.016-1.022 Urine protein assay by test strip, semi-quantitative [...] sediment leukocyte count by microscopy (number/high power field) NONE NRG Bacteria detection in urine sediment by light microscopy NEGATIVE NRG Squamous epithelial cells detection in urine sediment by light microscopy RARE NRG Crystals detection in urine sediment by light microscopy NONE NRG Casts detection in urine sediment by light microscopy NONE NRG Mucus detection in urine sediment by light microscopy SMALL NRG Complete urinalysis with reflex to culture NO NRG Complete blood count (CBC) with automated white blood cell (WBC) differential - 08/13/18 14:07 Blood leukocytes automated count (number/volume) 6.2 10*3/uL 4.3-11.0 Blood erythrocytes automated count (number/volume) 4.74 10*6/uL 4.35-5.85 Venous blood hemoglobin measurement (mass/volume) 15.1 g/dL 13.3-17.7 Blood hematocrit (volume fraction) 43 % 40-54 Automated erythrocyte mean corpuscular volume 91 [foz_us] 80-99 Automated erythrocyte mean corpuscular hemoglobin (mass per erythrocyte) 32 pg 25-34 Automated erythrocyte mean corpuscular hemoglobin concentration measurement (mass/volume) 35 g/dL 32-36 Automated erythrocyte distribution width ratio 12.3 % 10.0- 14.5 Automated blood platelet count (count/volume) 237 10*3/uL 130-400 Automated blood platelet mean volume measurement 10.4 [foz_us] 7.4-10.4 Automated blood neutrophils/100 leukocytes 53 % 42-75 Automated blood lymphocytes/100 leukocytes 37 % 12-44 Blood monocytes/100 leukocytes 9 % 0-12 Automated blood eosinophils/100 leukocytes 1 % 0-10 Automated blood basophils/100 leukocytes 1 % 0-10 Blood neutrophils automated count (number/volume) 3.3 10*3 1.8-7.8 Blood lymphocytes automated count (number/volume) 2.3 10*3 1.0-4.0 Blood monocytes automated count (number/volume) 0.5 10*3 0.0- 1.0 Automated eosinophil count 0.1 10*3/uL 0.0-0.3 Automated blood basophil count (count/volume) 0.0 10*3/uL 0.0-0.1 Comprehensive metabolic panel - 08/13/18 14:07 Serum or plasma sodium measurement (moles/volume) 130 mmol/L 135-145 Serum or plasma potassium measurement (moles/volume) 3.5 mmol/L 3.6-5.0 Serum or plasma chloride measurement (moles/volume) 90 mmol/L 98-107 Carbon dioxide 27 mmol/L 21-32 Serum or plasma anion gap determination (moles/volume) 13 mmol/L 5-14 Serum or plasma urea nitrogen measurement (mass/volume) 11 mg/dL 7-18 Serum or plasma creatinine measurement (mass/volume) 0.79 mg/dL 0.60-1.30 Serum or plasma urea nitrogen/creatinine mass ratio 14 NRG Serum or plasma creatinine measurement with calculation of estimated glomerular filtration rate > NRG Serum or plasma glucose measurement (mass/volume) 113 mg/dL 70-105 Serum or plasma calcium measurement (mass/volume) 9.0 mg/dL 8.5-10.1 Serum or plasma total bilirubin measurement (mass/volume) 1.1 mg/dL 0.1-1.0 Serum or plasma alkaline phosphatase measurement (enzymatic activity/volume) 73 U/L 40-136 Serum or plasma aspartate aminotransferase measurement (enzymatic activity/volume) 28 U/L 5-34 Serum or plasma alanine aminotransferase measurement (enzymatic activity/volume) 18 U/L 0-55 Serum or plasma protein measurement (mass/volume) 8.3 g/dL 6.4-8.2 Serum or plasma albumin measurement (mass/volume) 4.8 g/dL 3.2-4.5 Magnesium - 08/13/18 14:07 Magnesium 1.9 mg/dL 1.8-2.4 Lipase - 08/13/18 14:07 Lipase 31 U/L 8-78 Fibrin D-dimer FEU measurement in platelet poor plasma (mass/volume) - 08/13/18 14:07 Fibrin D-dimer FEU measurement in platelet poor plasma (mass/volume) 0.33 ug/mL 0.00-0.49 TROPONIN T - 08/13/18 14:07 TROPONIN T < 6 <=15 PROBNP FS - 08/13/18 14:07 PROBNP FS 8.5 pg/mL <75.0 THYROID STIMULATING HORMONE - 08/13/18 14:07 THYROID STIMULATING HORMONE 1.78 u[iU]/mL 0.35-4.94 Urine drug screening test - 08/13/18 14:33 Urine phencyclidine detection by screening method NEGATIVE NEGATIVE Urine benzodiazepines detection by screening method NEGATIVE NEGATIVE Urine cocaine detection NEGATIVE NEGATIVE Urine amphetamines detection by screening method NEGATIVE NEGATIVE Urine methamphetamine detection by screening method NEGATIVE NEGATIVE Urine cannabinoids detection by screening method NEGATIVE NEGATIVE Urine opiates detection by screening method NEGATIVE NEGATIVE Urine barbiturates detection NEGATIVE NEGATIVE Screening urine tricyclic antidepressants detection NEGATIVE NEGATIVE Urine methadone detection by screening method NEGATIVE NEGATIVE Urine oxycodone detection NEGATIVE NEGATIVE Urine propoxyphene detection NEGATIVE NEGATIVE Encounters ACCT No. Visit Date/Time Discharge Status Pt. Type Provider Facility Loc./Unit Complaint [id number] 08/13/2018 13:45:00 08/13/2018 16:15:00 DIS Outpatient SUNDAY CONWAY DO [facility] ER FS TACHYCARDIA; NEAR SYNCOPE [id number] 08/08/2018 19:06:00 08/08/2018 22:30:00 DIS Emergency GARTH LICONA MD [facility] ER SOB [id number] 07/01/2015 21:33:00 Document Registration
[2018-08-17 21:32] LABS: BASOPHILS % (AUTO) 0 % (0-10); EOSINOPHILS % (AUTO) 0 % (0-10); HEMATOCRIT 45 % (40-54); HEMOGLOBIN 15.9 G/DL (13.3-17.7); LYMPHOCYTES # (AUTO) 2.2 X 10^3 (1.0-4.0); LYMPHOCYTES % (AUTO) 24 % (12-44); MEAN CORPUSCULAR HEMOGLOBIN 32 PG (25-34); MEAN CORPUSCULAR HGB CONC 35 G/DL (32-36); MEAN CORPUSCULAR VOLUME 90 FL (80-99); MEAN PLATELET VOLUME 10.5 FL (7.4-10.4); MONOCYTES # (AUTO) 0.4 X 10^3 (0.0-1.0); MONOCYTES % (AUTO) 5 % (0-12); NEUTROPHILS # (AUTO) 6.3 X 10^3 (1.8-7.8); NEUTROPHILS % (AUTO) 70 % (42-75); PLATELET COUNT 272 10^3/uL (130-400); RED CELL DISTRIBUTION WIDTH 13.1 % (10.0-14.5)
[2018-08-17 21:36] LABS: PROTHROMBIN TIME PATIENT 13.5 SEC (12.2-14.7)
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
[2018-08-17 21:46] LABS: ALANINE AMINOTRANSFERASE 20 U/L (0-55); ALBUMIN 4.8 GM/DL (3.2-4.5); ALKALINE PHOSPHATASE 74 U/L (40-136); BILIRUBIN,TOTAL 0.9 MG/DL (0.1-1.0); BUN/CREATININE RATIO 10; CALCIUM 9.9 MG/DL (8.5-10.1); CARBON DIOXIDE 24 MMOL/L (21-32); CHLORIDE 100 MMOL/L (98-107); CREATININE SERUM 0.86 MG/DL (0.60-1.30); GFR ESTIMATED > 60; GLUCOSE 174 MG/DL (70-105); LIPASE 42 U/L (8-78); MAGNESIUM 2.4 MG/DL (1.8-2.4); POTASSIUM 3.6 MMOL/L (3.6-5.0); SODIUM 138 MMOL/L (135-145); TOTAL PROTEIN 8.4 GM/DL (6.4-8.2)
[2018-08-17] MEDS ORDERED: NS IV 1000 ML 1,000 ML IV ONE (21:46)
--- NOTE | 2018-08-17 22:17 | Diagnostic Imaging Report ---
Clinical indication: Patient with chest discomfort. Exam: Portable chest x-ray upright view. Comparisons: Chest x-ray dated 08/13/2018. Findings: Lungs/pleura: Lungs are clear. There is no pneumothorax. There is no pleural effusion. Mediastinum: Unremarkable. Pulmonary vasculature: Unremarkable. Heart: Unremarkable. Bones/extrathoracic soft tissue: Unremarkable. Impression: There is no radiographic evidence of acute cardiopulmonary process. Dictated by: Dictated on workstation # [id number]
[2018-08-17 22:50] VITALS: BP 120/80
== END 2018-08-17 22:52 | disposition home or self-care (01) ==
LOC: EDUNIT# 21:11 → ER 21:12
DX: R07.89 Other chest pain (principal); E11.9 Type 2 diabetes mellitus without complications; E78.00 Pure hypercholesterolemia, unspecified; Z79.84 Long term (current) use of oral hypoglycemic drugs
CPT/HCPCS: 36415; 71045; 80053; 82962; 83690; 83735; 83874; 84484; 85025; 85379; 85610; 85730; 93005; 93041

== ENCOUNTER → 2018-08-31 | Outpatient (CLI) | payer BC ==
[~2018-08-31] MED LIST changes: +METO-387
[2018-08-31 11:30] VITALS: BP 112/76
--- NOTE | 2018-08-31 11:30 | Cardiology Stress Test Report ---
Stress Test Report Date of Procedure/Referring: Date of Procedure: Aug 31, 2018 PCP Johann Monk MD Admitting Physician [facility] Baseline Heart Rate: 74 Baseline Blood Pressure: Blood Pressure Systolic: 112 Blood Pressure Diastolic: 76 Baseline EKG: Baseline EKG: normal sinus rhythm Summary/Conclusion: Summary: In summary, the patient started exercising with a baseline heart rate, blood pressure and EKG mentioned above Patient was able to exercise for a total of 7 minutes on Vinny protocol, 8.5 METs Maximum heart rate 159 Maximum blood pressure 131/44 Stress EKG Minimal nondiagnostic changes Recovery EKG Return to baseline Conclusion: 1. Good exercise tolerance for a total of 7 minutes on Vinny protocol, 8.5 METs, achieving 90 percent of maximum expected heart rate 2. Minimal nondiagnostic EKG changes with exercise returned to baseline during recovery 3. No arrhythmia was noted JOHANN MONK MD Aug 31, 2018 11:30
== END ==
LOC: CARD 09:47
PROVIDERS: ATTEND Internal Medicine Cardiovascular Disease
DX: R07.89 Other chest pain (principal); R00.2 Palpitations; E11.9 Type 2 diabetes mellitus without complications; K21.9 Gastro-esophageal reflux disease without esophagitis
CPT/HCPCS: 93017; 93306

== ENCOUNTER 2018-09-02 10:03 | Emergency (ER) | payer BC ==
[~2018-09-02] VITALS: Ht 165.1 cm; Wt 70.3 kg
[~2018-09-02 10:03] MED LIST changes: -METO-387
--- OUTSIDE RECORDS SUMMARY | 2018-09-02 10:10 | XMS REPORT | Continuity of Care Document ---
Author Organization Unknown Address Unknown Allergies Active Description Code Type Severity Reaction Onset Reported/Identified Relationship to Patient Clinical Status Yes No Known Drug Allergies [id number] Drug Allergy Unknown N/A 07/01/2015 Medications There [...] R00.2 PALPITATIONS 08/17/2018 CONWAY DO Ot Z79.84 TRIPOLER (CURRENT) USE OF ORAL HYPOGLYC 08/19/2018 GARTH LICONA MD Ot E11.9 TYPE 2 DIABETES MELLITUS WITHOUT COMPLIC 08/19/2018 GARTH LICONA MD, Ot E78.00 PURE HYPERCHOLESTEROLEMIA, UNSPECIFIED 08/19/2018 GARTH LICONA MD Ot R07.89 OTHER CHEST PAIN 08/19/2018 GARTH LICONA MD Ot Z79.84 TRIPOLER (CURRENT) USE OF ORAL HYPOGLYC Procedures There [...] NEGATIVE NEGATIVE Urine propoxyphene detection NEGATIVE NEGATIVE Complete blood count (CBC) with automated white blood cell (WBC) differential - 08/17/18 21:15 Blood leukocytes automated count (number/volume) 9.0 10*3/uL 4.3-11.0 Blood erythrocytes automated count (number/volume) 5.02 10*6/uL 4.35-5.85 Venous blood hemoglobin measurement (mass/volume) 15.9 g/dL 13.3-17.7 Blood hematocrit (volume fraction) 45 % 40-54 Automated erythrocyte mean corpuscular volume 90 [foz_us] 80-99 Automated erythrocyte mean corpuscular hemoglobin (mass per erythrocyte) 32 pg 25-34 Automated erythrocyte mean corpuscular hemoglobin concentration measurement (mass/volume) 35 g/dL 32-36 Automated erythrocyte distribution width ratio 13.1 % 10.0- 14.5 Automated blood platelet count (count/volume) 272 10*3/uL 130-400 Automated blood platelet mean volume measurement 10.5 [foz_us] 7.4-10.4 Automated blood neutrophils/100 leukocytes 70 % 42-75 Automated blood lymphocytes/100 leukocytes 24 % 12-44 Blood monocytes/100 leukocytes 5 % 0-12 Automated blood eosinophils/100 leukocytes 0 % 0-10 Automated blood basophils/100 leukocytes 0 % 0-10 Blood neutrophils automated count (number/volume) 6.3 10*3 1.8-7.8 Blood lymphocytes automated count (number/volume) 2.2 10*3 1.0-4.0 Blood monocytes automated count (number/volume) 0.4 10*3 0.0- 1.0 Automated eosinophil count 0.0 10*3/uL 0.0-0.3 Automated blood basophil count (count/volume) 0.0 10*3/uL 0.0-0.1 PT panel in platelet poor plasma by coagulation assay - 08/17/18 21:15 Prothrombin time (PT) in platelet poor plasma by coagulation assay 13.5 s 12.2-14.7 INR in platelet poor plasma or blood by coagulation assay 1.0 0.8-1.4 Activated partial thromboplastin time (aPTT) in platelet poor plasma bycoagulation assay - 08/17/18 21:15 Activated partial thromboplastin time (aPTT) in platelet poor plasma bycoagulation assay 26 s 24-35 Fibrin D-dimer FEU measurement in platelet poor plasma (mass/volume) - 08/17/18 21:15 Fibrin D-dimer FEU measurement in platelet poor plasma (mass/volume) 0.29 ug/mL 0.00-0.49 Comprehensive metabolic panel - 08/17/18 21:15 Serum or plasma sodium measurement (moles/volume) 138 mmol/L 135-145 Serum or plasma potassium measurement (moles/volume) 3.6 mmol/L 3.6-5.0 Serum or plasma chloride measurement (moles/volume) 100 mmol/L 98-107 Carbon dioxide 24 mmol/L 21-32 Serum or plasma anion gap determination (moles/volume) 14 mmol/L 5-14 Serum or plasma urea nitrogen measurement (mass/volume) 9 mg/dL 7-18 Serum or plasma creatinine measurement (mass/volume) 0.86 mg/dL 0.60-1.30 Serum or plasma urea nitrogen/creatinine mass ratio 10 NRG Serum or plasma creatinine measurement with calculation of estimated glomerular filtration rate > NRG Serum or plasma glucose measurement (mass/volume) 174 mg/dL 70-105 Serum or plasma calcium measurement (mass/volume) 9.9 mg/dL 8.5-10.1 Serum or plasma total bilirubin measurement (mass/volume) 0.9 mg/dL 0.1-1.0 Serum or plasma alkaline phosphatase measurement (enzymatic activity/volume) 74 U/L 40-136 Serum or plasma aspartate aminotransferase measurement (enzymatic activity/volume) 24 U/L 5-34 Serum or plasma alanine aminotransferase measurement (enzymatic activity/volume) 20 U/L 0-55 Serum or plasma protein measurement (mass/volume) 8.4 g/dL 6.4-8.2 Serum or plasma albumin measurement (mass/volume) 4.8 g/dL 3.2-4.5 Magnesium - 08/17/18 21:15 Magnesium 2.4 mg/dL 1.8-2.4 Serum or plasma troponin i.cardiac measurement (mass/volume) - 08/17/18 21:15 Serum or plasma troponin i.cardiac measurement (mass/volume) < ng/mL <0.028 Myoglobin, serum - 08/17/18 21:15 Myoglobin, serum 25.7 ng/mL 10.0-92.0 Lipase - 08/17/18 21:15 Lipase 42 U/L 8-78 Capillary blood glucose measurement by glucometer (mass/volume) - 08/17/18 21:18 Capillary blood glucose measurement by glucometer (mass/volume) 164 mg/dL 70-110 Encounters ACCT No. Visit Date/Time Discharge Status Pt. Type Provider Facility Loc./Unit Complaint [id number] 08/25/2018 13:45:00 08/25/2018 23:59:59 CLS Preadmit DASH MONTILLA, JOHANN Madrigal [facility] [address] CARD ANTERIOR CHEST WALL PAIN,DIABETES MELLITUS [id number] 08/17/2018 21:12:00 08/17/2018 22:52:00 DIS Outpatient GARTH LICONA MD [facility] ER BLOOD SUGAR PROBLEMS,CHEST DISCOMFORT [id number] 08/13/2018 13:45:00 08/13/2018 16:15:00 DIS Outpatient SUNDAY CONWAY DO [facility] [address] ER FS TACHYCARDIA; NEAR SYNCOPE [id number] 08/08/2018 19:06:00 08/08/2018 22:30:00 DIS Emergency LIVAN MONTILLA, GARTH Silva [facility] [address] ER SOB [id number] 08/31/2018 09:47:00 ACT Outpatient DASH MONTILLA, JOHANN Madrigal [facility] [address] CARD ANTERIOR CHEST WALL PAIN,DIABETES MELLITUS [id number] 07/01/2015 21:33:00 Document Registration
[2018-09-02] MEDS ORDERED: ASPIRIN 81 MG CHEW (CHILDREN'S ASA) PO ONE (11:00)
--- NOTE | 2018-09-02 11:00 | ED Chest Pain ---
General Chief Complaint: Chest Pain Stated Complaint: CHEST PAIN History of Present Illness Date Seen by Provider: Sep 02, 2018 Time Seen by Provider: 10:30 Initial Comments The patient is a 42-year-old male with a history of hypertension, hyperlipidemia (per patient report) and vig-eybeqwo-vgmkecznj diabetes. Per records review, is only on metformin and is not on anything for his other diagnoses. He has had a number of presentations to this emergency department and the [place] emergency Department recently for chest pain, symptoms of palpitations and sometimes with bilateral hand tingling. He has had negative workups each time and in fact saw cardiology 2 days ago in the clinic at [place] where echocardiogram and stress testing were without evidence of any acute process. Patient presents today with concern for acute onset of chest heaviness substernally with onset about 2 hours prior to arrival. Symptoms were a 4 out of 10 in severity initially and are about a 1 out of 10 in severity now. Associated bilateral hand tingling. Discomfort was nonradiating and nothing seemed to make it better or worse and it was nonexertional and nonpleuritic in character. 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 Associated mild shortness of breath. No associated fevers, nausea or vomiting, cough, diaphoresis, abdominal pain or back pain. No associated recent immobilization, hemoptysis, surgery, calf pain or swelling, personal or family history of venous thromboembolic disease, estrogen or steroid use. Patient is resting comfortably and vital signs are appropriate upon initial evaluation in the emergency department. Allergies and Home Medications Allergies Coded Allergies: No Known Drug Allergies (Unverified , 07/01/15) Home Medications Metformin HCl 500 Mg Tab.er.24, 500 MG PO DAILY Prescribed by: GARTH LICONA on 08/08/18 2142 Patient Home Medication List Home Medication List Reviewed: Yes Review of Systems Review of Systems Constitutional: see HPI All Other Systems Reviewed Negative Unless Noted: Yes Past [place]-Qluvvu-[place] Hx Past Med/Social Hx: Reviewed Nursing Past Med/Soc Hx Patient Social History 2nd Hand Smoke Exposure: No Recent Hopitalizations: No Immunizations Up To Date Tetanus Booster (TDap): Unknown Seasonal Allergies Seasonal Allergies: No Past Medical History Surgeries: Yes (R eye surgery) Respiratory: No Cardiac: Yes High Cholesterol Neurological: No Reproductive Disorders: No Genitourinary: No Gastrointestinal: No Musculoskeletal: No Endocrine: Yes Diabetes, Non-Insulin dep HEENT: No Cancer: No Psychosocial: No Integumentary: No Family Medical History Reviewed Nursing Family Hx No Pertinent Family Hx Physical Exam Vital Signs Vital Signs - First Documented 09/02/18 10:07 Temp 99.0 Pulse 84 Resp 18 B/P (MAP) 121/55 (77) Pulse Ox 99 Capillary Refill : Height, Weight, BMI Height: 5'7.00" Weight: 159lbs. oz. [id number]; BMI Method:Stated General Appearance: No Apparent Distress Other comments This is a middle-aged male appearing nontoxic and in no acute distress. Head is normocephalic and atraumatic. Neck is supple and nontender. Oropharynx is moist. Lungs are clear to auscultation at all stations. There is normal S1 and S2 without rubs or gallops The refill is appropriate, less than 2 seconds globally. Abdomen is soft, nontender and nondistended. Skin is warm and dry without cyanosis, clubbing or edema. Psychiatrically, the patient demonstrates appropriate mood and affect and is alert. Progress/Results/Core Measures Results/Orders Lab Results Laboratory Tests Test 09/02/18 10:19 09/02/18 12:28 Range/Units White Blood Count 7.2 4.3-11.0 10^3/uL Red Blood Count 4.39 4.35-5.85 10^6/uL Hemoglobin 14.0 13.3-17.7 G/DL Hematocrit 41 40-54 % Mean Corpuscular Volume 94 80-99 FL Mean Corpuscular Hemoglobin 32 25-34 PG Mean Corpuscular Hemoglobin Concent 34 32-36 G/DL Red Cell Distribution Width 12.8 10.0-14.5 % Platelet Count 243 130-400 10^3/uL Mean Platelet Volume 11.1 H 7.4-10.4 FL Neutrophils (%) (Auto) 65 42-75 % Lymphocytes (%) (Auto) 26 12-44 % Monocytes (%) (Auto) 7 0-12 % Eosinophils (%) (Auto) 1 0-10 % Basophils (%) (Auto) 0 0-10 % Neutrophils # (Auto) 4.7 1.8-7.8 X 10^3 Lymphocytes # (Auto) 1.9 1.0-4.0 X 10^3 Monocytes # (Auto) 0.5 0.0-1.0 X 10^3 Eosinophils # (Auto) 0.1 0.0-0.3 10^3/uL Basophils # (Auto) 0.0 0.0-0.1 10^3/uL Prothrombin Time 13.5 12.2-14.7 SEC INR Comment 1.0 0.8-1.4 Activated Partial Thromboplast Time 28 24-35 SEC Sodium Level 136 135-145 MMOL/L Potassium Level 3.9 3.6-5.0 MMOL/L Chloride Level 96 L 98-107 MMOL/L Carbon Dioxide Level 30 21-32 MMOL/L Anion Gap 10 5-14 MMOL/L Blood Urea Nitrogen 8 7-18 MG/DL Creatinine 0.75 0.60-1.30 MG/DL Estimat Glomerular Filtration Rate > 60 BUN/Creatinine Ratio 11 Glucose Level 99 70-105 MG/DL Calcium Level 9.3 8.5-10.1 MG/DL Corrected Calcium 8.9 8.5-10.1 MG/DL Total Bilirubin 1.0 0.1-1.0 MG/DL Aspartate Amino Transf (AST/SGOT) 19 5-34 U/L Alanine Aminotransferase (ALT/SGPT) 17 0-55 U/L Alkaline Phosphatase 81 40-136 U/L Troponin T 7 6 <=15 NG/L Pro-B-Type Natriuretic Peptide 67.3 <75.0 PG/ML Total Protein 7.5 6.4-8.2 GM/DL Albumin 4.5 3.2-4.5 GM/DL My Orders Orders - SUSU ACOSTA MD Cbc With Automated Diff (09/02/18 10:46) Comprehensive Metabolic Panel (09/02/18 10:46) Troponin T (09/02/18 10:46) Ekg Tracing (09/02/18 10:46) Chest Pa/Lat (2 View) (09/02/18 10:46) Probnp Fs (09/02/18 10:46) Protime With Inr (09/02/18 10:46) Partial Thromboplastin Time (09/02/18 10:46) Aspirin Chewable Tablet (Baby Aspirin Ch (09/02/18 11:00) Troponin T (09/02/18 12:06) Ekg Tracing (09/02/18 12:06) Medications Given in ED Current Medications Medications Dose Ordered Sig/Xiomy Route Start Time Stop Time Status Last Admin Dose Admin Aspirin 324 mg ONCE ONCE PO 09/02/18 11:00 09/02/18 11:01 DC 09/02/18 11:09 324 MG Vital Signs/I&O 09/02/18 10:07 Temp 99.0 Pulse 84 Resp 18 B/P (MAP) 121/55 (77) Pulse Ox 99 Progress Progress Note : Time: 11:01 Progress Note Clinical examination reassuring. Bse-fybhruq-zzuvcywvn diabetic, also possibly with other risk factors but a nonsmoker and not on any medicines for high blood pressure or high cholesterol and not hypertensive here. Has had extensive evaluation for recurrent episodes of chest discomfort including stress test and echocardiogram and a clinic appointment with cardiology a couple of days ago in [place]. Symptom onset 2 hours prior to arrival, symptoms similar to prior episodes. HEART score 2. Patient is Wells low risk for PE and PERCs out. Will plan for labs, XR/EKG, ASA dose, other medication for symptomatic control as per nursing flowsheet, and likely 2 hour delta troponin for disposition with discharge out to follow up closely with PCP and with cardiology. Patient understands and agrees with the plan of care. Update 1258: second troponin and EKG unremarkable and reassuring. Patient reports his symptoms have resolved. He feels much better and would like to go home. He is counseled to follow up very closely with his primary care physician in the next 1-2 days and to return immediately to the emergency department if symptoms worsen or if other new symptoms of concern develop. All questions are answered. We'll proceed with discharge home at this time. EKG : Comment Normal sinus rhythm, rate 78, no acute ST elevation or depression, ID 148, QRS 104, QTC 434, EP interpretation. Repeat EKG drawn when repeat troponin was has no significant change. Diagnostic Imaging Comments CHEST PA/LAT (2 VIEW) INDICATION: Chest pain COMPARISON: 08/17/2018 FINDINGS: Frontal and lateral views of the chest demonstrate normal heart size and pulmonary vascularity. The lungs are clear. There are no signs of infiltrate, pleural effusions or pneumothoraces. The visualized osseous structures show no acute abnormalities. IMPRESSION: 1. No acute process. No signs of infiltrates, effusions or pneumothoraces. Dictated on workstation # [id number] Departure Impression Primary Impression: Other chest pain Disposition: 01 HOME, SELF-CARE Condition: Improved Departure-Patient Inst. Referrals: [facility] (PCP/Family) Primary Care Physician Patient Instructions: Chest Pain Add. Discharge Instructions: Follow-up closely with your primary care physician in the next 1-2 days. Return to the emergency department right away with recurrent or worsening symptoms or other new concerns. SUSU ACOSTA MD Sep 02, 2018 10:59
[2018-09-02 11:30] LABS: BASOPHILS % (AUTO) 0 % (0-10); EOSINOPHILS # (AUTO) 0.1 10^3/uL (0.0-0.3); EOSINOPHILS % (AUTO) 1 % (0-10); HEMATOCRIT 41 % (40-54); LYMPHOCYTES # (AUTO) 1.9 X 10^3 (1.0-4.0); LYMPHOCYTES % (AUTO) 26 % (12-44); MEAN CORPUSCULAR HEMOGLOBIN 32 PG (25-34); MEAN CORPUSCULAR HGB CONC 34 G/DL (32-36); MEAN CORPUSCULAR VOLUME 94 FL (80-99); MEAN PLATELET VOLUME 11.1 FL (7.4-10.4); MONOCYTES # (AUTO) 0.5 X 10^3 (0.0-1.0); MONOCYTES % (AUTO) 7 % (0-12); NEUTROPHILS # (AUTO) 4.7 X 10^3 (1.8-7.8); NEUTROPHILS % (AUTO) 65 % (42-75); PLATELET COUNT 243 10^3/uL (130-400); RED CELL DISTRIBUTION WIDTH 12.8 % (10.0-14.5); WHITE BLOOD COUNT 7.2 10^3/uL (4.3-11.0)
[2018-09-02 11:31] LABS: PROTHROMBIN TIME PATIENT 13.5 SEC (12.2-14.7)
[2018-09-02 11:39] LABS: BUN/CREATININE RATIO 11; CARBON DIOXIDE 30 MMOL/L (21-32); CHLORIDE 96 MMOL/L (98-107); CREATININE SERUM 0.75 MG/DL (0.60-1.30); GFR ESTIMATED > 60; GLUCOSE 99 MG/DL (70-105); POTASSIUM 3.9 MMOL/L (3.6-5.0); SODIUM 136 MMOL/L (135-145)
[2018-09-02 11:40] LABS: ALANINE AMINOTRANSFERASE 17 U/L (0-55); ALBUMIN 4.5 GM/DL (3.2-4.5); ALKALINE PHOSPHATASE 81 U/L (40-136); CALCIUM 9.3 MG/DL (8.5-10.1); TOTAL PROTEIN 7.5 GM/DL (6.4-8.2)
--- NOTE | 2018-09-02 11:48 | Diagnostic Imaging Report ---
INDICATION: Chest pain COMPARISON: 08/17/2018 FINDINGS: Frontal and lateral views of the chest demonstrate normal heart size and pulmonary vascularity. The lungs are clear. There are no signs of infiltrate, pleural effusions or pneumothoraces. The visualized osseous structures show no acute abnormalities. IMPRESSION: 1. No acute process. No signs of infiltrates, effusions or pneumothoraces. Dictated by: Dictated on workstation # [id number]
[2018-09-02] MEDS ORDERED: METO-387 (11:51)
[2018-09-02 13:06] VITALS: BP 109/61
== END 2018-09-02 13:08 | disposition home or self-care (01) ==
LOC: EDUNIT# 10:03 → ER FS 10:06
DX: R07.81 Pleurodynia (principal); I10 Essential (primary) hypertension; E78.5 Hyperlipidemia, unspecified; E11.9 Type 2 diabetes mellitus without complications; Z79.84 Long term (current) use of oral hypoglycemic drugs
CPT/HCPCS: 36415; 71046; 80053; 83880; 84484; 85025; 85610; 85730; 93005